=== PATIENT | male | born 1965 | race Caucasian/White ===

== ENCOUNTER 2017-07-04 13:49 | Emergency (ER) | payer OTHER ==
[~2017-07-04] VITALS: Ht 182.9 cm; Wt 91.2 kg
[~2017-07-04 13:49] MED LIST: ALBUTEROL0.09 MG/A1 INH; ATORVASTATIN CA20 MG PO; BUPROPION HYDR100 M3 PO; ESCITALOPRAM OX10 MG PO; GABAPENTIN300 M2 PO; IBUPROFEN800 M1 PO; LEXAPRO 10MG10 MG PO; LIORESAL 10MG T10 MG PO; MEDROL DOSEPAK1 PAC PO; MOTRIN 600 MG600 MG PO; MOTRIN800 MG PO; NAPROSYN 250MG250 MG PO; PERCOCET 325 MG1 TA2 PO; PERCOCET 325 MG1 TAB PO; PERCOCET 5-3251 EACH PO; PREDNISONE 20MG20 MG PO; QUETIAPINE FUM200 MG PO; SEROQUEL XR200 M1 PO; SEROQUEL100 M1 PO; TESSALON PERLE100 MG PO; TRAMADOL50 MG PO; ZOFRAN4 M1 SL
--- NOTE | 2017-07-04 15:31 | ED GENERAL ADULT ---
History of Present Illness General Chief Complaint: General Adult Stated Complaint: WEAKNESS Source: patient Exam Limitations: no limitations Vital Signs & Intake/Output Vital Signs & Intake/Output Vital Signs Date Time Temp Pulse Resp B/P B/P Pulse O2 O2 Flow FiO2 Mean Ox Delivery Rate 07/04 1919 97.9 91 15 120/80 99 Room Air Room Air 07/04 1557 Room Air Room Air 07/04 1358 98.6 100 18 129/85 99 Room Air Allergies Coded Allergies: penicillin V (Unknown reaction as child 02/12/16) codeine (stomach irritation 02/12/16) Reconcile Medications Gabapentin 300 MG CAPSULE 1 CAP PO TID NERVE PAIN (Reported) Ibuprofen 800 MG TABLET 1 TAB PO TID PRN PAIN Oxycodone HCl/Acetaminophen (Percocet 5-325 MG Tablet) 5 MG-325 MG TABLET 1 TAB PO BID PRN PAIN Oxycodone HCl/Acetaminophen (Percocet 5-325 MG Tablet) 5 MG-325 MG TABLET 0.5- 1 TAB PO BID PRN PAIN Quetiapine Fumarate (Seroquel) 100 MG TABLET 500 MG PO QPM SLEEP/MENTAL HEALTH (Reported) Triage Note: PT TO ED FOR GENERALIZED WEAKNESS AND FREQUENT FALLS OVER THE PAST WEEK, PT ALSO SMELLS STRONGLY OF URINE, DENIES ANY URINARY INCONT, DENIES HITTING HEAD. DENIES FEVER, N/V/D, ABD PAIN. Triage Nurses Notes Reviewed? yes Onset: Gradual Duration: worse persistent since (years) Timing: recent history Injury Environment: home Severity: moderate Severity Numbers: 7 Modifying Factors: Worsens With: other (walking). HPI: Patient is a 52-year-old male with history of peripheral neuropathy presenting to the emergency department with chief complaint of burning worsening pain in the legs . Patient reports that he lives with his sister, he has a walker at home that he uses occasionally to help it around. He does report increased falls because the pain is like skipped significant and they "give out". Patient reports that last time he was here he is put on Percocet for pain and that seemed to help. he also reported that he was once placed in rehabilitation to help build strength which helped. Patient denies any head trauma with the falls. Patient reports he simply cannot lower [place]. He is able to get up without difficulty. He has been placed on gabapentin and has been taking 300 mg 3 times a day without relief. Denies any urinary frequency or urgency or dysuria. No abdominal pain. Denies any back pain chest pain palpitations or shortness of breath. Denies any drug use. Denies any numbness or tingling. Denies any urinary incontinence or retention. (Marisela Moeller) Past History Travel History Traveled to [place] past 21 day No Medical History Any Pertinent Medical History? see below for history Neurological: peripheral neuropathy, NEUROPATHY BILAT LEGS EENT: NONE Cardiovascular: hypertension, hyperlipidemia Respiratory: COPD, BROCHITIS Gastrointestinal: NONE Hepatic: NONE Renal: NONE Musculoskeletal: NONE Psychiatric: alcohol dependence, depression, says he is hearing voices Endocrine: NONE Blood Disorders: anemia Cancer(s): NONE ACCOUNT INFORMATION CLERK/Reproductive: NONE History of MRSA: No History of VRE: No History of CDIFF: No Surgical History Surgical History: non-contributory Psychosocial History Who do you live with Daughter What is your primary language Turkmen Tobacco Use: Current Daily Use Daily Tobacco Use Amount/Type: => 5 Cigarettes daily ETOH Use: denies use Illicit Drug Use: denies illicit drug use Family History Family History, If Any: Relation not specified for: *No pertinent family history Hx Contributory? No (Marisela Moeller) Review of Systems Review of Systems Constitutional: Reports: no symptoms. Comments Review of systems: See HPI, All other systems negative. Constitutional, no chills fever or weight loss HEENT: No visual changes no sore throat no congestion Cardiovascular: No chest pain ,palpitation , orthopnea or ankle swelling Skin, no jaundice no rashes Respiratory: No dyspnea cough sputum or hemoptysis GI: No nausea no vomiting : No dysuria No hematuria Muscle skeletal: no back pain, no neck pain, Neurologic: No numbness no confusion, no headaches Psych: No stress anxiety or depression,. Heme/endocrine: No bruising no bleeding no polyuria or polydipsia Immunology: No splenectomy or history of AIDS (Marisela Moeller) Physical Exam Physical Exam General Appearance: no apparent distress, alert, awake, comfortable, appears slightly disheveled. Comments: Slightly disheveled person in no acute distress, smells of urine HEENT: Pupils equally round and reactive to light and accommodation. Nose is atraumatic. External auditory canal and Tympanic membranes clear. Pharynx normal. No swelling or edema. Neck: Normal inspection Back: Nontender Cardiovascular: Regular rate and rhythms Respiratory: No respiratory distress.breath sounds clear to auscultation bilaterally Abdomen: Soft, nontender nondistended, no appreciable organomegaly. Normal bowel sounds. No ascites, no rebound or guarding. Extremity: No edema, no calf tenderness to palpation, normal and equal pulses. Muscular strength is 4 out of 5 in upper and lower extremity while seated on the stretcher. Strength is equal and symmetric. Neuro: Alert oriented x3, motor sensory normal, cranial nerves II through XII grossly intact. Cerebellar testing is unremarkable. Patellar reflexes are 2+ bilaterally. Walks with steady gait using a walker. Skin: No appreciable rash on exposed skin, skin is warm and dry. Psych: Mood and affect is normal, memory and judgment is normal. Core Measures ACS in differential dx? No CVA/TIA Diagnosis: No Sepsis Present: No Sepsis Focused Exam Completed? No (Michele DIAZ,Marisela) Progress Differential Diagnoses I considered the following diagnoses in my evaluation of the patient: UTI, electrolyte abnormality, progression of peripheral neuropathy, chronic pain, viral syndrome Plan of Care: Orders Procedure Date/time Status Heart Healthy Diet 07/04 D Active FingerStick- Glucose 07/04 1541 Active CULTURE,URINE 07/04 1541 Active URINE DRUG SCREEN FOR ER ONLY 07/04 1541 Complete URINALYSIS 07/04 1541 Complete TSH REFLEX 07/04 1541 Complete ETHANOL 07/04 1541 Complete COMPREHENSIVE METABOLIC PANEL 07/04 1541 Complete CBC WITHOUT DIFFERENTIAL 07/04 1541 Complete Laboratory Tests 07/04/17 1655: Urine Opiates Screen < 100.00, Methadone Screen 46, Barbiturate Screen < 60, Ur Phencyclidine Scrn < 6.00, Amphetamines Screen 112, U Benzodiazepines Scrn < 85, Urine Cocaine Screen < 50, Urine Cannabis Screen 71.80 H, Urine Color YEL, Urine Clarity CLEAR, Urine pH 6.5, Ur Specific [place] 1.025, Urine Protein NEG, Urine Ketones NEG, Urine Nitrite NEG, Urine Bilirubin NEG, Urine Urobilinogen 0.2, Ur Leukocyte Esterase NEG, Ur Microscopic EXAM NOT REQUIRED, Urine Hemoglobin NEG, Urine Glucose NEG 07/04/17 1550: Anion Gap 11, Estimated GFR > 60, BUN/Creatinine Ratio 30.0 H, Glucose 99, Calcium 9.6, Total Bilirubin 0.3, AST 12 L, ALT 18 L, Alkaline Phosphatase 43, Total Protein 6.6, Albumin 4.0, Globulin 2.6, Albumin/Globulin Ratio 1.5, TSH & T3 &Free T4 Intrp 0.685, CBC w Diff NO MAN DIFF REQ, RBC 4.05 L, MCV 97.7 H, MCH 32.3 H, MCHC 33.0, RDW 14.8 H, MPV 9.5, Gran % 39.1 L, Lymphocytes % 48.9 , Monocytes % 9.5 H, Eosinophils % 1.9, Basophils % 0.6, Absolute Granulocytes 3.1, Absolute Lymphocytes 3.9 H, Absolute Monocytes 0.8 H, Absolute Eosinophils 0.2, Absolute Basophils 0, Serum Alcohol < 10.0 Microbiology 07/04 1654 URINE ROUT: Urine Culture - RECD Patient able to ambulate with walker, steady gait. Patient reports that he would like to go home with prescription for pain medication to see how he does. Patient will return for any worsening symptoms. Patient was given another option to be a hole over this evening and reevaluated in the morning by physical therapy and he wanted to go home. His sister is picking walk. Patient does not drive. He currently does not have a primary care physician, unable to set up home physical therapy because no one to sign orders. Initial ED EKG: none (Marisela Moeller) Departure Departure Time of Disposition: 1907 Disposition: HOME OR SELF CARE Condition: Stable Clinical Impression Primary Impression: Neuropathy Referrals: Lola Gray MD Patient Has No Primary Care Dr (PCP/Family) Additional Instructions: Follow-up with a primary care physician, call tomorrow to make an appointment. Take Percocet as prescribed for pain. Continue taking Prevacid prescribed medications. Use walker they have at home to help get around well symptoms improved. Return for worsening symptoms or concerns. Departure Forms: Customer Survey General Discharge Information Prescriptions: Current Visit Scripts Oxycodone HCl/Acetaminophen (Percocet 5-325 MG Tablet) 0.5-1 TAB PO BID PRN PAIN #10 TAB (Marisela Moeller) PA/RANGER AIDE Co-Sign Statement Statement: ED Attending supervision documentation- [] I saw and evaluated the patient. I have also reviewed all the pertinent lab results and diagnostic results. I agree with the findings and the plan of care as documented in the PA's/RANGER AIDE's documentation. [X] I have reviewed the ED Record and agree with the PA's/RANGER AIDE's documentation. [] Additions or exceptions (if any) to the PAs/RANGER AIDE's note and plan are summarized below: [] (Eileen RAHMAN,Pedro Douglas) Critical Care Note Critical Care Note Critical Care Time: non-applicable (Michele DIAZ,Marisela)
[2017-07-04 16:00] LABS: ABSOLUTE BASOPHIL COUNT 0 /CUMM (0.0-0.2); ABSOLUTE EOSINOPHIL COUNT 0.2 /CUMM (0.0-0.7); ABSOLUTE GRANULOCYTE CT 3.1 /CUMM (1.4-6.5); ABSOLUTE LYMPH COUNT 3.9 /CUMM (1.2-3.4); ABSOLUTE MONOCYTE COUNT 0.8 /CUMM (0.10-0.60); BASOPHIL % 0.6 % (0.0-2.0); EOSINOPHIL % 1.9 % (0-5); GRANULOCYTE % 39.1 % (42.2-75.2); HEMATOCRIT 39.6 % (42-52); MEAN CORPUSCULAR HGB 32.3 PG (27.0-31.0); MEAN CORPUSCULAR VOLUME 97.7 FL (80.0-94.0); MEAN PLATELET VOLUME 9.5 FL (7.4-10.4); PLATELET COUNT 165 /CUMM (130-400); RBC DISTRIBUTION WIDTH 14.8 % (11.5-14.5); RED BLOOD CELL CT 4.05 /CUMM (4.70-6.10)
[2017-07-04] MEDS ORDERED: PERCOCET 5-3251 EACH PO (19:09)
[2017-07-04 19:19] VITALS: BP 120/80
== END 2017-07-04 19:20 ==
LOC: ERH 13:49 → ENTRNSPT 18:21 → CMPTRNSPT 18:43 → ERH 19:20
PROVIDERS: Physician Assistant
DX: G62.9 Polyneuropathy, unspecified (principal)
CPT/HCPCS: 80307; 81003; 87086; G0480

== ENCOUNTER 2018-01-28 12:57 | Emergency (ER) | payer OTHER ==
[~2018-01-28] VITALS: Ht 182.9 cm; Wt 81.6 kg
[~2018-01-28 12:57] MED LIST changes: +ANTABUSE250 M1 PO; +ASPIRIN EC81 M1 PO
--- NOTE | 2018-01-28 14:21 | RADIOLOGY REPORT ---
EXAMINATION: XR LUMBOSACRAL SPINE CLINICAL INFORMATION: 52-year-old male with lower back pain. COMPARISON: Lumbosacral spine done on 04/29/2015. TECHNIQUE: 2 views, 4 images of the lumbosacral spine were obtained. FINDINGS: The height, alignment of the lumbar vertebrae appear normal. Minimal endplate osteophyte formation is noted at the superior endplate of L5 consistent with minimal spondylosis, unchanged. The intervertebral disc height is well-maintained. The posterior appendages are intact. The paraspinal soft tissues are remarkable for diffuse atherosclerotic aortic disease. IMPRESSION: 1. Mild spondylosis at L4-L5, unchanged since 04/29/2015. 2. Atherosclerotic disease of the aorta, unchanged since 04/29/2015.
[2018-01-28] MEDS ORDERED: MEDROL4 M2 PO (14:35)
[2018-01-28] MEDS ORDERED: PERCOCET 5-3251 EACH PO (14:35)
[2018-01-28] MEDS ORDERED: CYCLOBENZAPRINE10 M1 PO (14:36)
--- NOTE | 2018-01-28 14:36 | ED NECK/BACK PAIN COMPLAINT ---
History of Present Illness General Chief Complaint: Low Back Pain/Injury Stated Complaint: BACK PAIN Source: patient Exam Limitations: no limitations Vital Signs & Intake/Output Vital Signs & Intake/Output Vital Signs Date Time Temp Pulse Resp B/P B/P Pulse O2 O2 Flow FiO2 Mean Ox Delivery Rate 01/28 1442 85 136/84 ED Intake and Output 01/29 0000 01/28 1200 Intake Total 0 Output Total Balance 0 Intake, Oral 0 Patient 180 lb Weight Weight Reported by Patient Measurement Method Allergies Coded Allergies: penicillin V (Unknown reaction as child 01/28/18) codeine (stomach irritation 01/28/18) Reconcile Medications Aspirin (Ecotrin*) 81 MG TABLET.DR 1 TAB PO DAILY HEART/BLOOD (Reported) Cyclobenzaprine HCl 10 MG TABLET 1 TAB PO TID PRN pain Disulfiram (Antabuse) 250 MG TABLET 1 TAB PO QAM ALCOHOLISM (Reported) Gabapentin 300 MG CAPSULE 1 CAP PO TID NERVE PAIN (Reported) Methylprednisolone. (Medrol) 4 MG TAB.DS.PK 1 DP PO AD low back pain 6 on day 1 then reduce by one tablet daily until gone Oxycodone HCl/Acetaminophen (Percocet 5-325 MG Tablet) 5 MG-325 MG TABLET 1 TAB PO 4 TIMES/DAY PRN pain Oxycodone HCl/Acetaminophen (Percocet 5-325 MG Tablet) 5 MG-325 MG TABLET 1 TAB PO BID hand pain Quetiapine Fumarate (Seroquel) 100 MG TABLET 500 MG PO QPM SLEEP/MENTAL HEALTH (Reported) Triage Note: PT TO ER C/C LOW BACK PAIN X 2 DAYS, CONSTANT. DENIES INJURY. FEELS THE PAIN IS RELATED TO HIS PERIPHERAL NEUROPATHY IN HIS LEGS. HAS TRIED MOTRIN WITH NO RELIEF. JOE CORREA EVALUATING PATIENT AT TRIAGE. Triage Nurses Notes Reviewed? yes Onset: Abrupt Duration: day(s): (2), constant, continues in ED Timing: single episode today Quality/Severity: moderate, sharpness Location: lumbar spine, paraspinous muscles Radiation: buttocks, upper legs Method of Injury: unknown Loss of Consciousness: no loss of consciousness HPI: 52-year-old male past medical history of COPD, peripheral neuropathy, alcohol dependence presents for evaluation of left-sided back pain. Patient reports symptoms for started 2 days ago to be persistent. The pain is located in the left side of lower back radiates in the left butt and left upper leg. The pain is worse with movement. There is no trauma or known triggering events. Patient denies any numbness or tingling no bowel or bladder dysfunction no abdominal pain no fevers no chest pain shortness of breath or any other associated symptoms. He has been taking ibuprofen at home without any improvement. He denies any IV drug use or history of cancer. (Demario Izaguirre) Past History Travel History Traveled to [place] past 21 day No Medical History Any Pertinent Medical History? see below for history Neurological: peripheral neuropathy, NEUROPATHY BILAT LEGS EENT: NONE Cardiovascular: hypertension, hyperlipidemia Respiratory: COPD, BROCHITIS Gastrointestinal: NONE Hepatic: NONE Renal: NONE Musculoskeletal: NONE Psychiatric: alcohol dependence, depression, says he is hearing voices Endocrine: NONE Blood Disorders: anemia Cancer(s): NONE DISPUTE COORDINATOR/Reproductive: NONE History of MRSA: No History of VRE: No History of CDIFF: No Surgical History Surgical History: non-contributory Psychosocial History Who do you live with Daughter What is your primary language British Tobacco Use: Current Daily Use Daily Tobacco Use Amount/Type: => 5 Cigarettes daily ETOH Use: denies use, SOBER X 70 MONTHS Illicit Drug Use: denies illicit drug use Family History Family History, If Any: Relation not specified for: *No pertinent family history Hx Contributory? No (Demario Izaguirre) Review of Systems Review of Systems Constitutional: Reports: no symptoms. Eyes: Reports: no symptoms. Ears, Nose, Throat, Mouth: Reports: no symptoms. Respiratory: Reports: no symptoms. Cardiovascular: Reports: no symptoms. Gastrointestinal/Abdominal: Reports: no symptoms. Musculoskeletal: Reports: see HPI, back pain, muscle pain, muscle stiffness. Skin: Reports: no symptoms. Neurological/Psychological: Reports: no symptoms. All Other Systems: Reviewed and Negative (Demario Izaguirre) Physical Exam Physical Exam General Appearance: well developed/nourished, no apparent distress, alert, awake Head: atraumatic, normal appearance Eyes: Bilateral: normal appearance, PERRL, EOMI. Ears, Nose, Throat, Mouth: moist mucous membrane Neck: normal inspection, supple, full range of motion Respiratory: normal breath sounds, chest non-tender, no respiratory distress, lungs clear Cardiovascular: regular rate/rhythm, normal peripheral pulses Peripheral Pulses: 2+ radial (R), 2+ radial (L) Gastrointestinal: soft, non-tender Back: normal inspection, normal range of motion, LUMBAR ASPINE AND LEFT SIDED LUMBAR PARASPINOIUS MUSCLES ARE TEDNER TO PALPATION. NO BURINSG SWELLING OR ABRASIONS. NO STEP OFFS OR DEFORMITIES. Extremities: non-tender, normal range of motion Straight Leg Raising: Left: Pain at ____ degrees (30). Sensory: Medial Le: L4R, L4L. Top of Foot: 2: L5R, L5L. Sole of Foot: 2: SIR, MAINOR. Motor: Deficit L4 Right: No Deficit L4 Left: No Deficit L5 Right: No Deficit L5 Left: No Deficit S1 Right: No Deficit S1 Right: No Walk on Heels: 4: L4 Left, L4 Right. Ext. Big Toe: 4: L5 Left, L5 Right. DTR: Deficit L4 Left: No Deficit L4 Right: No Deficit S1 Left: No Deficit S1 Right: No Patellar: 2: L4 Right, L4 Left. Neurologic/Psych: no motor/sensory deficits, awake, alert, oriented x 3, normal gait, normal mood/affect Skin: intact, normal color, warm/dry Core Measures CVA/TIA Diagnosis: No (José Miguel DIAZ,Demario) Progress Differential Diagnosis: AAA, herniated disc, myofascial strain, pyelo/UTI, spinal cord inj, ureterolithiasis Plan of Care: Patient is here for low back pain for the past 2 days. No trauma or triggering event he has no signs or symptoms of cauda equina. No history of cancer no IV drug use. His vital signs are stable. An x-ray was obtained which is negative for fracture or bone lesions. Patient was given a prescription for Medrol Dosepak, OXYCODONE ibuprofen and Flexeril. Advised rest avoid heavy lifting bending or excessive physical activity follow-up with the primary care doctor discussed return precautions patient agrees to the plan Diagnostic Imaging: Viewed by Me: Radiology Read. Discussed w/RAD: Radiology Read. Radiology Impression: PATIENT: LIZETH CAMPBELL PRESENT AGE: 52 PATIENT ACCOUNT NO: [id number] : 64 LOCATION: [facility] ORDERING PHYSICIAN: Demario DIAZ SERVICE DATE: 01/28/18-5835 EXAM TYPE: RAD - XRY- LUMBOSACRAL SPINE 4 VIEWS EXAMINATION: XR LUMBOSACRAL SPINE CLINICAL INFORMATION : 52-year-old male with lower back pain. COMPARISON: Lumbosacral spine done on 04/29/2015. TECHNIQUE: 2 views, 4 images of the lumbosacral spine were obtained. FINDINGS: The height, alignment of the lumbar vertebrae appear normal. Minimal endplate osteophyte formation is noted at the superior endplate of L5 consistent with minimal spondylosis, unchanged. The intervertebral disc height is well- maintained. The posterior appendages are intact. The paraspinal soft tissues are remarkable for diffuse atherosclerotic aortic disease. IMPRESSION: 1. Mild spondylosis at L4-L5, unchanged since 04/29/2015. 2. Atherosclerotic disease of the aorta, unchanged since 04/29/2015. DICTATED BY: Damián Bojorquez MD DATE/TIME DICTATED:01/28/181413 SUGAR BOILER:SARAY DATE/TIME TRANSCRIBED:1413 CONFIDENTIAL, DO NOT COPY WITHOUT APPROPRIATE AUTHORIZATION. < Electronically signed in Other Vendor System> SIGNED BY: Damián Bojorquez MD 01/28/18 1421 (Demario Izaguirre) Departure Departure Disposition: HOME OR SELF CARE Condition: Stable Clinical Impression Primary Impression: Low back pain Qualifiers: Chronicity: acute Back pain laterality: left Sciatica presence: with sciatica Sciatica laterality: sciatica of left side Qualified Code: M54.42 - Lumbago with sciatica, left side Referrals: Patient Has No Primary Care Dr (PCP/Family) Additional Instructions: rest avid excessive physical activity heavy lifting or bending. medrol dose pack , tylenol/ibuprofen cyclobenzparine and percocet as needed. make a follow up with your primary care doctor for a recheck in a few days. return sooner with any concern. Departure Forms: Customer Survey General Discharge Information Prescriptions: Current Visit Scripts Methylprednisolone. (Medrol) 1 DP PO AD #1 DP 6 on day 1 then reduce by one tablet daily until gone Oxycodone HCl/Acetaminophen (Percocet 5-325 MG Tablet) 1 TAB PO 4 TIMES/DAY PRN pain #8 TAB Cyclobenzaprine HCl 1 TAB PO TID PRN pain #30 TAB (Demario Izaguirre) PA/REHABILITATION SERVICES COUNSELOR Co-Sign Statement Statement: ED Attending supervision documentation- I saw and evaluated the patient. I have also reviewed all the pertinent lab results and diagnostic results. I agree with the findings and the plan of care as documented in the PA's/REHABILITATION SERVICES COUNSELOR's documentation. x I have reviewed the ED Record and agree with the PA's/REHABILITATION SERVICES COUNSELOR's documentation. [] Additions or exceptions (if any) to the PAs/REHABILITATION SERVICES COUNSELOR's note and plan are summarized below: [] (Good RAHMAN,Jose)
[2018-01-28 14:42] VITALS: BP 136/84
== END 2018-01-28 14:42 ==
LOC: ERH 12:57
DX: M54.5 Low back pain (principal); G62.9 Polyneuropathy, unspecified; I10 Essential (primary) hypertension; F17.210 Nicotine dependence, cigarettes, uncomplicated; Z79.82 Long term (current) use of aspirin
CPT/HCPCS: 72110